=== PATIENT | male | born 1940 | race Caucasian/White ===

== ENCOUNTER → 2018-10-12 | Outpatient (CLI) | payer MEDICARE, OTHER | END | disposition home or self-care (01) | LOC: CVU 14:59 | PROVIDERS: ATTEND Internal Medicine Cardiovascular Disease | DX: I65.23 Occlusion and stenosis of bilateral carotid arteries (principal); E11.9 Type 2 diabetes mellitus without complications; E78.5 Hyperlipidemia, unspecified; Z85.850 Personal history of malignant neoplasm of thyroid; I77.1 Stricture of artery | CPT/HCPCS: 93880 ==

== ENCOUNTER 2019-10-23 10:12 | Emergency (ER) | payer MEDICARE, OTHER ==
[~2019-10-23] VITALS: Ht 182.9 cm; Wt 81.4 kg
[2019-10-23 10:20] VITALS: BP 130/57
[2019-10-23 11:08] LABS: RAPID INFLUENZA A Negative (Negative); RAPID INFLUENZA B Negative (Negative)
== END 2019-10-23 11:42 | disposition home or self-care (01) ==
LOC: ED 11:20
DX: J06.9 Acute upper respiratory infection, unspecified (principal); J02.9 Acute pharyngitis, unspecified; E11.9 Type 2 diabetes mellitus without complications; Z90.49 Acquired absence of other specified parts of digestive tract
CPT/HCPCS: 71046; 87400; 99284

== ENCOUNTER 2019-11-09 22:41 | Inpatient (IN) | payer MEDICARE, OTHER ==
[~2019-11-09] VITALS: Ht 182.9 cm; Wt 78.5 kg
[2019-11-09] MEDS ORDERED: ONDANSETRON 2MG/ML, 2ML ONE (23:25)
[2019-11-09] MEDS ORDERED: SODIUM CHLORIDE FLUSH 10ML SYR IVF ONE (23:30)
[2019-11-09] MEDS ORDERED: SODIUM CHLORIDE 0.9% 1,000ML IVBOLUS ONE (23:30)
[2019-11-09] MEDS ORDERED: ONDANSETRON 2MG/ML, 2ML IVPush ONE (23:30)
[2019-11-09 23:47] LABS: BASOPHILS # (AUTO) 0.02 x10^3/uL (0-0.1); BASOPHILS % (AUTO) 0 % (0-1); EOSINOPHILS # (AUTO) 0.14 x10^3/uL (0-0.4); EOSINOPHILS % (AUTO) 1 % (1-7); LYMPHOCYTES # (AUTO) 1.24 x10^3/uL (1-3.4); LYMPHOCYTES % (AUTO) 11 % (22-44); MD NO; MEAN CORPUSCULAR HEMOGLOBIN 30.5 pg (27.5-34.5); MEAN CORPUSCULAR HGB CONC 33.2 g/dL (33.2-36.2); MEAN CORPUSCULAR VOLUME 91.8 fL (81-97); MEAN PLATELET VOLUME 10.4 fL (7.4-10.4); MONOCYTES # (AUTO) 0.27 x10^3/uL (0.2-0.8); MONOCYTES % (AUTO) 2 % (2-9); NEUTROPHILS # (AUTO) 10.01 x10^3/uL (1.8-6.8); NEUTROPHILS % (AUTO) 86 % (42-75); PLATELET COUNT 151 x10^3/uL (130-400); RED BLOOD COUNT 5.72 x10^6/uL (4.38-5.82); RED CELL DISTRIBUTION WIDTH 13.4 % (9.4-14.8)
[2019-11-10 00:05] LABS: ALKALINE PHOSPHATASE 160 U/L (45-117); BILIRUBIN,TOTAL 0.6 mg/dL (0.2-1.0)
[2019-11-10 00:10] LABS: ANION GAP 7 mmol/L (5-15); CALCIUM 9.2 mg/dL (8.5-10.1); CHLORIDE 107 mmol/L (98-107); CREATININE 1.48 mg/dL (0.7-1.3)
[2019-11-10 00:11] LABS: ALANINE AMINOTRANSFERASE 31 U/L (12-78); ALBUMIN 3.9 g/dL (3.4-5.0)
--- NOTE | 2019-11-10 01:03 | NUR ---
BIB [facility] D/T VOMITTING WITH ABD PAIN NO DIARRHEA HX OPEN ABDOMEN WITH CHOLECYSTECTOMY HERNIA STENT X1 YEARS AGO ON [facility] PT couldnt remember exact name of meds or dose how much taking unable to finish med rec iv was started fluids infused zofran given pt came back from ct abdomen shows abdomen SBO inserted ng imaging will be taken for ng placement
--- NOTE | 2019-11-10 01:12 | NUR ---
RECEIVED BS REPORT FROM REY STERLING. ASHER PULLED NGT BACK 5CM PER DR. APONTE VERBAL ORDER WHILE VIEWING X-RAY. PT. TOLERATED WELL. LOW CONTINUOUS SUCTION IN USE. TOTAL OF 200ML YELLOW GASTIC JUICES OUT THUS FAR. PT. DENIES NEEDS. MONITORS IN PLACE.
--- NOTE | 2019-11-10 01:55 | NUR ---
REPORT TO REY SANDOVAL. FLOOR READY FOR PT. TRANSPORT.
[2019-11-10] MEDS ORDERED: ONDANSETRON ODT 4 MG PO PRN (02:00)
[2019-11-10] MEDS ORDERED: hydrALAzine 20 MG/ML, 1ML IVPush PRN (02:00)
[2019-11-10] MEDS ORDERED: ACETAMINOPHEN 325 MG TABLET PO PRN (02:00)
[2019-11-10] MEDS ORDERED: ONDANSETRON 2MG/ML, 2ML IVPush PRN (02:00)
[2019-11-10] MEDS ORDERED: PROMETHAZINE 25 MG/ML, 1ML IM PRN (02:00)
[2019-11-10] MEDS ORDERED: morphine SULFATE 10 MG/ML, 1ML IVPush PRN (02:00)
[2019-11-10] MEDS ORDERED: OXYcodone IR 5MG TABLET PO PRN (02:00)
[2019-11-10 02:15] VITALS: BP 147/77
[2019-11-10] MEDS: SODIUM CHLORIDE 0.9% 1,000 ML IV SCH ×3 (02:30→22:00)
[2019-11-10 02:40] LABS: FREE T4 (FREE THYROXINE) 1.36 ng/dL (0.76-1.46)
[2019-11-10] MEDS: HEPARIN 5,000 UNITS/ML, 1ML SQ SCH ×3 (02:42→18:00)
[2019-11-10] MEDS: INSULIN LISPRO 100 UNITS/ML, PEN SQ-INSULIN SCH ×4 (07:00→21:00)
[2019-11-10 07:19] VITALS: BP 142/78
[2019-11-10 13:06] VITALS: BP 147/74
[2019-11-10] MEDS ORDERED: CARV6.25 PO (16:50)
[2019-11-10] MEDS ORDERED: ROSU5TAB PO (16:50)
[2019-11-10] MEDS ORDERED: CLOP75TA52 PO (16:50)
[2019-11-10] MEDS ORDERED: LEVO125T PO (16:50)
[2019-11-10] MEDS ORDERED: LISI-424 PO (16:50)
[2019-11-10 16:53] LABS: MICROSCOPIC NOT IND
[2019-11-10 19:30] VITALS: BP 134/63
[2019-11-11] MEDS: HEPARIN 5,000 UNITS/ML, 1ML SQ SCH ×2 (02:00→10:00)
[2019-11-11 03:04] VITALS: BP 114/55
[2019-11-11] MEDS: SODIUM CHLORIDE 0.9% 1,000 ML IV SCH (05:00)
[2019-11-11 05:01] LABS: BASOPHILS # (AUTO) 0.03 x10^3/uL (0-0.1); BASOPHILS % (AUTO) 1 % (0-1); EOSINOPHILS # (AUTO) 0.22 x10^3/uL (0-0.4); EOSINOPHILS % (AUTO) 4 % (1-7); LYMPHOCYTES # (AUTO) 1.14 x10^3/uL (1-3.4); LYMPHOCYTES % (AUTO) 21 % (22-44); MD NO; MEAN CORPUSCULAR HEMOGLOBIN 30.9 pg (27.5-34.5); MEAN CORPUSCULAR HGB CONC 33.4 g/dL (33.2-36.2); MEAN CORPUSCULAR VOLUME 92.5 fL (81-97); MEAN PLATELET VOLUME 10.4 fL (7.4-10.4); MONOCYTES # (AUTO) 0.73 x10^3/uL (0.2-0.8); MONOCYTES % (AUTO) 14 % (2-9); NEUTROPHILS % (AUTO) 61 % (42-75); PLATELET COUNT 126 x10^3/uL (130-400); RED BLOOD COUNT 4.49 x10^6/uL (4.38-5.82); RED CELL DISTRIBUTION WIDTH 13.2 % (9.4-14.8)
[2019-11-11 05:13] LABS: ALANINE AMINOTRANSFERASE 23 U/L (12-78); ALBUMIN 2.7 g/dL (3.4-5.0); ANION GAP 4 mmol/L (5-15); CALCIUM 7.5 mg/dL (8.5-10.1); CHLORIDE 113 mmol/L (98-107)
[2019-11-11 05:15] LABS: ALKALINE PHOSPHATASE 104 U/L (45-117); BILIRUBIN,TOTAL 0.8 mg/dL (0.2-1.0); CHOL/HDL RATIO 1.5; CHOLESTEROL, TOTAL 77 mg/dL (140-239); CREATININE 1.25 mg/dL (0.7-1.3); HDL CHOL % 66 % (26-37); HDL CHOLESTEROL (DIRECT) 51 mg/dL (40-60); LDL CHOLESTEROL,CALCULATED 18 mg/dL (54-169); LDL/HDL RATIO 0.4 (0.5-3.0); TOTAL PROTEIN 5.6 g/dL (6.4-8.2); TRIGLYCERIDES 41 mg/dL (50-200); VLDL CHOLESTEROL 8 mg/dL (0-25)
[2019-11-11] MEDS: INSULIN LISPRO 100 UNITS/ML, PEN SQ-INSULIN SCH ×2 (07:00→11:00)
[2019-11-11 08:47] VITALS: BP 127/77
[2019-11-11 14:00] VITALS: BP 124/66
[2019-11-11] MEDS ORDERED: POLY17PO5 PO (16:03)
== END 2019-11-11 17:00 | disposition home or self-care (01) | DRG 388 ==
LOC: ED 23:58 → EDIP 11-10 00:28 → 5SO 11-10 02:07 → DCLOUNGE 11-11 16:45
PROVIDERS: ADMIT Internal Medicine; ATTEND Internal Medicine
PROC: 0D9670Z Drainage of Stomach with Drainage Device, Via Natural or Artificial Opening (ICD-10-PCS; principal; 2019-11-10)
DX: K56.609 Unspecified intestinal obstruction, unspecified as to partial versus complete obstruction (principal); N17.0 Acute kidney failure with tubular necrosis; I25.10 Atherosclerotic heart disease of native coronary artery without angina pectoris; Z83.3 Family history of diabetes mellitus; Z85.850 Personal history of malignant neoplasm of thyroid; Z95.5 Presence of coronary angioplasty implant and graft; Z96.651 Presence of right artificial knee joint; Z90.49 Acquired absence of other specified parts of digestive tract; I12.9 Hypertensive chronic kidney disease with stage 1 through stage 4 chronic kidney disease, or unspecified chronic kidney disease; E11.22 Type 2 diabetes mellitus with diabetic chronic kidney disease; N18.9 Chronic kidney disease, unspecified
CPT/HCPCS: 36415; 74018; 74021; 74176; 80053; 80061; 81003; 82962; 83036; 83690; 83735; 84439; 84443; 85025; 96361; 96374; 99285; G0378; J1644; J2405; J1815; J7030